=== PATIENT | male | born 1990 | race African-American/Black ===

== ENCOUNTER 2018-11-13 01:36 | Emergency (ER) | payer SELFPAY ==
--- NOTE | 2018-11-13 02:30 | EDM.PDOC ---
ED HPI GENERAL MEDICAL PROBLEM - General Chief Complaint: General Stated Complaint: chills Time Seen by Provider: 11/13/18 02:05 Source of Information: Reports: Patient, RN Notes Reviewed - History of Present Illness INITIAL COMMENTS - FREE TEXT/NARRATIVE: 28-year-old male with onset of cough, congestion, sore throat, fever chills headache and body aches yesterday. Those symptoms continue more severe early this morning. His cough has been nonproductive. He did not get a flu shot this year. - Related Data Allergies Allergy/AdvReac Type Severity Reaction Status Date / Time No Known Allergies Allergy Verified 08/09/18 17:32 Home Meds: Home Meds . [No Known Home Meds] 08/09/18 [History] Past Medical History - Past Health History Medical/Surgical History: Denies Medical/Surgical History Social & Family History - Family History Family Medical History: Noncontributory - Tobacco Use Smoking Status *Q: Never Smoker - Caffeine Use Caffeine Use: Reports: Coffee, Soda - Recreational Drug Use Recreational Drug Use: No ED ROS GENERAL - Review of Systems Review Of Systems: See Below Constitutional: Reports: Fever, Chills HEENT: Reports: Rhinitis, Sinus Problem, Throat Pain Respiratory: Denies: Shortness of Breath, Wheezing, Pleuritic Chest Pain Cardiovascular: Reports: Chest Pain GI/Abdominal: Denies: Abdominal Pain (With coughing), Nausea, Vomiting Musculoskeletal: Reports: Other (Generalized achiness) Skin: Denies: Rash Neurological: Reports: Headache ED EXAM, GENERAL - Physical Exam Exam: See Below General Appearance: Alert, Mild Distress Eye Exam: Bilateral Eye: PERRL Throat/Mouth: Normal Inspection, Normal Oropharynx Head: Atraumatic. No: Facial Swelling Neck: Supple Respiratory/Chest: No Respiratory Distress, Lungs Clear, Normal Breath Sounds. No: Rhonchi, Wheezing Cardiovascular: Regular Rate, Rhythm Extremities: Normal Inspection, Normal Range of Motion Neurological: Alert, Oriented, No Motor/Sensory Deficits Skin Exam: Warm, Dry, Normal Color, No Rash Course - Vital Signs Last Recorded V/S: Last Vital Signs Temp 98.2 F 11/13/18 01:46 Pulse 89 11/13/18 01:46 Resp 18 11/13/18 01:46 BP 147/86 H 11/13/18 01:46 Pulse Ox 96 11/13/18 01:46 Departure - Departure Time of Disposition: 02:28 Disposition: Home, Self-Care 01 Condition: Fair Clinical Impression: Influenza - Discharge Information Instructions: Influenza, Adult Referrals: PCP,None [Primary Care Provider] - Forms: ED Department Discharge, ED Return to Work/School Form Additional Instructions: Rest, drink plenty of water to maintain hydration, vaporizer or steam as needed , take ibuprofen or Tylenol every 6-8 hours as needed for headache and other achiness, cough or decongestant medication such as Robitussin or Dimetapp as needed. Follow-up clinic if not much better within 3-4 days as expected, return to ED as needed.
== END 2018-11-13 02:38 | disposition home or self-care (01) ==
LOC: JD.ED 01:36
DX: J11.1 Influenza due to unidentified influenza virus with other respiratory manifestations (principal)
CPT/HCPCS: 87804; 99282; 99283